=== PATIENT | female | born 1950 | race Caucasian/White ===

== ENCOUNTER 2020-04-07 17:18 | Inpatient (IN) | payer MEDICARE, OTHER ==
[~2020-04-07] VITALS: Ht 162.6 cm; Wt 54.0 kg
[2020-04-07 17:50] VITALS: BP 134/80
[2020-04-07] MEDS: AMOX TR/POT CLAV 875 MG/125 MG TABLET PO SCH (21:32)
[2020-04-07] MEDS: APIXABAN 5 MG TABLET PO SCH (21:32)
[2020-04-07] MEDS: ATORVASTATIN CALCIUM 40 MG TABLET PO SCH (21:32)
[2020-04-07] MEDS: DOCUSATE SODIUM 100 MG/10 ML LIQUID UDCUP PO SCH (21:32)
[2020-04-07 21:40] LABS: BASOPHILS % (AUTO) 1.3 % (0.0-2.0); EOSINOPHILS % (AUTO) 5.4 % (1.0-6.0); HEMATOCRIT 33.7 % (36-46); LYMPHOCYTES # (AUTO) 0.5 K/uL (1.0-4.8); LYMPHOCYTES % (AUTO) 7.1 % (22.0-44.0); MEAN CORPUSCULAR HEMOGLOBIN 28.8 pg (26.0-34.0); MEAN CORPUSCULAR HGB CONC 32.6 G/dL (31.0-37.0); MEAN CORPUSCULAR VOLUME 88 fL (80-100); MONOCYTES # (AUTO) 0.7 K/uL (0.1-1.0); MONOCYTES % (AUTO) 10.4 % (2.0-9.0); NEUTROPHILS # (AUTO) 4.9 K/uL (1.8-7.7); NEUTROPHILS % (AUTO) 75.8 % (40.0-70.0); PLATELET COUNT (AUTO) 214 K/uL (150-450); RED BLOOD CELL COUNT(AUTO) 3.83 MIL/uL (4.00-5.20); RED CELL DISTRIBUTION WIDTH 15.3 % (11.5-14.5)
[2020-04-07 22:13] LABS: ALANINE AMINOTRANSFERASE 13 U/L (12-78); ALBUMIN 2.9 g/dL (3.4-5.0); ALKALINE PHOSPHATASE 45 U/L (46-116); ANION GAP 5 mmol/L (8-16); ASPARTATE AMINOTRANSFERASE 11 U/L (15-37); BILIRUBIN,TOTAL 0.5 mg/dL (0.1-1.0); CALCIUM, TOTAL 9.4 mg/dL (8.8-10.5); CARBON DIOXIDE 31 mmol/L (22-29); CHLORIDE 105 mmol/L (98-107); CREATININE 0.62 mg/dL (0.60-1.30); GLOMERULAR FILTR. RATE CALC > 60 mL/min (>60); GLUCOSE,RANDOM 111 mg/dL (70-110); POTASSIUM 4.2 mmol/L (3.5-5.1); SODIUM SERUM 141 mmol/L (136-145); UREA NITROGEN, BLOOD 20 mg/dL (7-18)
[2020-04-08] VITALS: BP 142/78
[2020-04-08 07:10] VITALS: BP 121/76
[2020-04-08] MEDS: AMOX TR/POT CLAV 875 MG/125 MG TABLET PO SCH ×2 (08:47→20:34)
[2020-04-08] MEDS: APIXABAN 5 MG TABLET PO SCH ×2 (08:47→20:34)
[2020-04-08] MEDS: LISINOPRIL 20 MG TABLET PO SCH (08:47)
[2020-04-08] MEDS: AmLODIPine BESYLATE 10 MG TABLET PO SCH (08:47)
[2020-04-08] MEDS: DOCUSATE SODIUM 100 MG/10 ML LIQUID UDCUP PO SCH ×2 (09:41→20:34)
[2020-04-08 10:45] VITALS: BP 113/71
[2020-04-08 16:19] VITALS: BP 124/78
[2020-04-08] MEDS: ATORVASTATIN CALCIUM 40 MG TABLET PO SCH (20:34)
[2020-04-09 01:07] VITALS: BP 109/65
[2020-04-09] MEDS: DOCUSATE SODIUM 283 MG/5 ML MINI-ENEMA PR SCH (05:00)
[2020-04-09 07:10] VITALS: BP 116/60
[2020-04-09] MEDS: APIXABAN 5 MG TABLET PO SCH ×2 (08:11→20:54)
[2020-04-09] MEDS: LISINOPRIL 20 MG TABLET PO SCH (08:11)
[2020-04-09] MEDS: AMOX TR/POT CLAV 875 MG/125 MG TABLET PO SCH ×2 (08:11→20:54)
[2020-04-09] MEDS: AmLODIPine BESYLATE 10 MG TABLET PO SCH (08:11)
[2020-04-09] MEDS: DOCUSATE SODIUM 100 MG CAPSULE PO SCH ×2 (08:21→20:55)
[2020-04-09 09:30] VITALS: BP_SYST 115; BP_SYST 116; BP_DIAS 66; BP_DIAS 70
[2020-04-09] MEDS ORDERED: LISI-662 PO (09:50)
[2020-04-09] MEDS ORDERED: AMOX1TAB16 PO (09:50)
[2020-04-09 16:55] VITALS: BP 110/66
[2020-04-09] MEDS: ATORVASTATIN CALCIUM 40 MG TABLET PO SCH (20:54)
[2020-04-09 23:46] VITALS: BP 118/68
[2020-04-10] MEDS: DOCUSATE SODIUM 283 MG/5 ML MINI-ENEMA PR SCH (06:00)
[2020-04-10] MEDS: AmLODIPine BESYLATE 10 MG TABLET PO SCH (07:38)
[2020-04-10] MEDS: MULTIVITAMINS WITH MINERALS, THERAPEUTIC TABLET PO SCH (07:38)
[2020-04-10] MEDS: ASCORBIC ACID 500 MG TABLET PO SCH (07:38)
[2020-04-10] MEDS: AMOX TR/POT CLAV 875 MG/125 MG TABLET PO SCH ×2 (07:38→21:05)
[2020-04-10] MEDS: APIXABAN 5 MG TABLET PO SCH ×2 (07:38→21:05)
[2020-04-10] MEDS: LISINOPRIL 20 MG TABLET PO SCH (07:38)
[2020-04-10] MEDS: DOCUSATE SODIUM 100 MG CAPSULE PO SCH ×2 (07:40→21:05)
[2020-04-10 08:16] VITALS: BP 124/80
[2020-04-10 20:13] VITALS: BP 117/68
[2020-04-10] MEDS: ATORVASTATIN CALCIUM 40 MG TABLET PO SCH (21:05)
[2020-04-11 01:45] VITALS: BP 127/78
[2020-04-11] MEDS: DOCUSATE SODIUM 283 MG/5 ML MINI-ENEMA PR SCH (05:27)
[2020-04-11 07:10] VITALS: BP 110/60
[2020-04-11 08:40] VITALS: BP 122/76
[2020-04-11] MEDS: LISINOPRIL 20 MG TABLET PO SCH (08:52)
[2020-04-11] MEDS: MULTIVITAMINS WITH MINERALS, THERAPEUTIC TABLET PO SCH (08:52)
[2020-04-11] MEDS: DOCUSATE SODIUM 100 MG CAPSULE PO SCH ×2 (08:52→20:58)
[2020-04-11] MEDS: APIXABAN 5 MG TABLET PO SCH ×2 (08:52→20:58)
[2020-04-11] MEDS: ASCORBIC ACID 500 MG TABLET PO SCH (08:52)
[2020-04-11] MEDS: AMOX TR/POT CLAV 875 MG/125 MG TABLET PO SCH ×2 (08:52→20:58)
[2020-04-11] MEDS: AmLODIPine BESYLATE 10 MG TABLET PO SCH (08:52)
[2020-04-11 10:30] VITALS: BP 126/97
[2020-04-11 15:20] VITALS: BP 127/68
[2020-04-11] MEDS: ATORVASTATIN CALCIUM 40 MG TABLET PO SCH (20:58)
[2020-04-11] MEDS: ACETAMINOPHEN 325 MG TABLET PO PRN (21:30)
[2020-04-12] VITALS: BP 121/65
[2020-04-12] MEDS: DOCUSATE SODIUM 283 MG/5 ML MINI-ENEMA PR SCH (06:00)
[2020-04-12] MEDS: ACETAMINOPHEN 325 MG TABLET PO PRN ×3 (06:22→21:10)
[2020-04-12 07:10] VITALS: BP 130/76
[2020-04-12 07:28] LABS: BASOPHILS % (AUTO) 2.6 % (0.0-2.0); EOSINOPHILS % (AUTO) 7.4 % (1.0-6.0); HEMATOCRIT 34.7 % (36-46); HEMOGLOBIN 11.5 g/dL (12.0-16.0); LYMPHOCYTES # (AUTO) 0.4 K/uL (1.0-4.8); LYMPHOCYTES % (AUTO) 9.5 % (22.0-44.0); MEAN CORPUSCULAR HEMOGLOBIN 29.2 pg (26.0-34.0); MEAN CORPUSCULAR HGB CONC 33.2 G/dL (31.0-37.0); MEAN CORPUSCULAR VOLUME 88 fL (80-100); MONOCYTES # (AUTO) 0.5 K/uL (0.1-1.0); MONOCYTES % (AUTO) 11.3 % (2.0-9.0); NEUTROPHILS % (AUTO) 69.2 % (40.0-70.0); PLATELET COUNT (AUTO) 230 K/uL (150-450); RED BLOOD CELL COUNT(AUTO) 3.95 MIL/uL (4.00-5.20); RED CELL DISTRIBUTION WIDTH 15.1 % (11.5-14.5)
[2020-04-12] MEDS: MULTIVITAMINS WITH MINERALS, THERAPEUTIC TABLET PO SCH (07:48)
[2020-04-12] MEDS: LISINOPRIL 20 MG TABLET PO SCH (07:48)
[2020-04-12] MEDS: ASCORBIC ACID 500 MG TABLET PO SCH (07:48)
[2020-04-12] MEDS: DOCUSATE SODIUM 100 MG CAPSULE PO SCH ×2 (07:48→20:17)
[2020-04-12] MEDS: APIXABAN 5 MG TABLET PO SCH ×2 (07:48→20:17)
[2020-04-12] MEDS: AmLODIPine BESYLATE 10 MG TABLET PO SCH (07:48)
[2020-04-12] MEDS: AMOX TR/POT CLAV 875 MG/125 MG TABLET PO SCH ×2 (07:48→20:17)
[2020-04-12 07:53] LABS: ANION GAP 7 mmol/L (8-16); CALCIUM, TOTAL 9.5 mg/dL (8.8-10.5); CARBON DIOXIDE 31 mmol/L (22-29); CHLORIDE 105 mmol/L (98-107); CREATININE 0.55 mg/dL (0.60-1.30); GLOMERULAR FILTR. RATE CALC > 60 mL/min (>60); GLUCOSE,RANDOM 100 mg/dL (70-110); POTASSIUM 3.8 mmol/L (3.5-5.1); SODIUM SERUM 143 mmol/L (136-145); UREA NITROGEN, BLOOD 20 mg/dL (7-18)
[2020-04-12 10:00] VITALS: BP 118/76
[2020-04-12 12:47] VITALS: BP 134/91
[2020-04-12 15:20] VITALS: BP 122/68
[2020-04-12] MEDS: ATORVASTATIN CALCIUM 40 MG TABLET PO SCH (20:17)
[2020-04-12 23:50] VITALS: BP 126/66
[2020-04-13] MEDS: DOCUSATE SODIUM 283 MG/5 ML MINI-ENEMA PR SCH (06:16)
[2020-04-13] MEDS: MULTIVITAMINS WITH MINERALS, THERAPEUTIC TABLET PO SCH (07:57)
[2020-04-13] MEDS: APIXABAN 5 MG TABLET PO SCH ×2 (07:57→20:46)
[2020-04-13] MEDS: ASCORBIC ACID 500 MG TABLET PO SCH (07:57)
[2020-04-13] MEDS: LISINOPRIL 20 MG TABLET PO SCH (07:57)
[2020-04-13] MEDS: DOCUSATE SODIUM 100 MG CAPSULE PO SCH ×2 (07:57→20:52)
[2020-04-13] MEDS: AmLODIPine BESYLATE 10 MG TABLET PO SCH (07:57)
[2020-04-13] MEDS: AMOX TR/POT CLAV 875 MG/125 MG TABLET PO SCH ×2 (07:57→20:45)
[2020-04-13] MEDS: ACETAMINOPHEN 325 MG TABLET PO PRN ×2 (08:43→20:52)
[2020-04-13 14:23] VITALS: BP 139/85
[2020-04-13 16:20] VITALS: BP 128/61
[2020-04-13] MEDS: ATORVASTATIN CALCIUM 40 MG TABLET PO SCH (20:46)
[2020-04-13] MEDS: SENNA 187 MG TABLET PO SCH (20:52)
[2020-04-13 23:00] VITALS: BP 124/69
[2020-04-14] MEDS: DOCUSATE SODIUM 283 MG/5 ML MINI-ENEMA PR SCH (04:49)
[2020-04-14 07:11] VITALS: BP 104/62
[2020-04-14] MEDS: MULTIVITAMINS WITH MINERALS, THERAPEUTIC TABLET PO SCH (08:34)
[2020-04-14] MEDS: AMOX TR/POT CLAV 875 MG/125 MG TABLET PO SCH ×2 (08:34→20:17)
[2020-04-14] MEDS: APIXABAN 5 MG TABLET PO SCH ×2 (08:34→20:16)
[2020-04-14] MEDS: LISINOPRIL 20 MG TABLET PO SCH (08:34)
[2020-04-14] MEDS: AmLODIPine BESYLATE 10 MG TABLET PO SCH (08:34)
[2020-04-14] MEDS: DOCUSATE SODIUM 100 MG CAPSULE PO SCH ×2 (08:34→20:16)
[2020-04-14] MEDS: ASCORBIC ACID 500 MG TABLET PO SCH (08:34)
[2020-04-14] MEDS: ACETAMINOPHEN 325 MG TABLET PO PRN (08:41)
[2020-04-14 16:00] VITALS: BP 113/72
[2020-04-14] MEDS: SENNA 187 MG TABLET PO SCH (20:17)
[2020-04-14] MEDS: ATORVASTATIN CALCIUM 40 MG TABLET PO SCH (20:17)
[2020-04-15] MEDS: DOCUSATE SODIUM 283 MG/5 ML MINI-ENEMA PR SCH (04:30)
[2020-04-15 04:32] VITALS: BP 126/75
[2020-04-15 07:30] VITALS: BP 142/82
[2020-04-15] MEDS: AmLODIPine BESYLATE 10 MG TABLET PO SCH (08:22)
[2020-04-15] MEDS: AMOX TR/POT CLAV 875 MG/125 MG TABLET PO SCH ×2 (08:22→20:13)
[2020-04-15] MEDS: LISINOPRIL 20 MG TABLET PO SCH (08:22)
[2020-04-15] MEDS: MULTIVITAMINS WITH MINERALS, THERAPEUTIC TABLET PO SCH (08:22)
[2020-04-15] MEDS: APIXABAN 5 MG TABLET PO SCH ×2 (08:22→20:13)
[2020-04-15] MEDS: DOCUSATE SODIUM 100 MG CAPSULE PO SCH ×2 (08:22→20:13)
[2020-04-15] MEDS: ASCORBIC ACID 500 MG TABLET PO SCH (08:22)
[2020-04-15 16:11] VITALS: BP 117/65
[2020-04-15] MEDS: ATORVASTATIN CALCIUM 40 MG TABLET PO SCH (20:13)
[2020-04-15] MEDS: SENNA 187 MG TABLET PO SCH (20:13)
[2020-04-16] VITALS: BP 117/66
[2020-04-16] MEDS: DOCUSATE SODIUM 283 MG/5 ML MINI-ENEMA PR SCH (05:12)
[2020-04-16 07:45] VITALS: BP 114/64
[2020-04-16] MEDS: ASCORBIC ACID 500 MG TABLET PO SCH (08:31)
[2020-04-16] MEDS: DOCUSATE SODIUM 100 MG CAPSULE PO SCH ×2 (08:31→20:39)
[2020-04-16] MEDS: MULTIVITAMINS WITH MINERALS, THERAPEUTIC TABLET PO SCH (08:31)
[2020-04-16] MEDS: APIXABAN 5 MG TABLET PO SCH ×2 (08:32→20:39)
[2020-04-16] MEDS: AmLODIPine BESYLATE 10 MG TABLET PO SCH (08:32)
[2020-04-16] MEDS: AMOX TR/POT CLAV 875 MG/125 MG TABLET PO SCH ×2 (08:32→20:39)
[2020-04-16] MEDS: LISINOPRIL 20 MG TABLET PO SCH (08:32)
[2020-04-16 15:39] VITALS: BP 123/72
[2020-04-16] MEDS: ATORVASTATIN CALCIUM 40 MG TABLET PO SCH (20:39)
[2020-04-16] MEDS: SENNA 187 MG TABLET PO SCH (20:39)
[2020-04-17] VITALS: BP 123/64
[2020-04-17] MEDS: DOCUSATE SODIUM 283 MG/5 ML MINI-ENEMA PR SCH (05:17)
[2020-04-17 07:00] VITALS: BP 128/68
[2020-04-17] MEDS: AMOX TR/POT CLAV 875 MG/125 MG TABLET PO SCH ×2 (09:09→20:26)
[2020-04-17] MEDS: AmLODIPine BESYLATE 10 MG TABLET PO SCH (09:09)
[2020-04-17] MEDS: DOCUSATE SODIUM 100 MG CAPSULE PO SCH ×2 (09:09→20:26)
[2020-04-17] MEDS: APIXABAN 5 MG TABLET PO SCH ×2 (09:09→20:26)
[2020-04-17] MEDS: MULTIVITAMINS WITH MINERALS, THERAPEUTIC TABLET PO SCH (09:10)
[2020-04-17] MEDS: ASCORBIC ACID 500 MG TABLET PO SCH (09:10)
[2020-04-17] MEDS: LISINOPRIL 20 MG TABLET PO SCH (09:10)
[2020-04-17 15:02] VITALS: BP 111/61
[2020-04-17] MEDS: SENNA 187 MG TABLET PO SCH (20:25)
[2020-04-17] MEDS: ATORVASTATIN CALCIUM 40 MG TABLET PO SCH (20:26)
[2020-04-18 00:11] VITALS: BP 116/64
[2020-04-18] MEDS: DOCUSATE SODIUM 283 MG/5 ML MINI-ENEMA PR SCH (04:49)
[2020-04-18 07:00] VITALS: BP 127/72
[2020-04-18] MEDS: ASCORBIC ACID 500 MG TABLET PO SCH (08:15)
[2020-04-18] MEDS: LISINOPRIL 20 MG TABLET PO SCH (08:15)
[2020-04-18] MEDS: DOCUSATE SODIUM 100 MG CAPSULE PO SCH ×2 (08:15→21:24)
[2020-04-18] MEDS: MULTIVITAMINS WITH MINERALS, THERAPEUTIC TABLET PO SCH (08:15)
[2020-04-18] MEDS: AmLODIPine BESYLATE 10 MG TABLET PO SCH (08:15)
[2020-04-18] MEDS: AMOX TR/POT CLAV 875 MG/125 MG TABLET PO SCH ×2 (08:15→21:24)
[2020-04-18] MEDS: APIXABAN 5 MG TABLET PO SCH ×2 (08:15→21:25)
[2020-04-18] MEDS: ACETAMINOPHEN 325 MG TABLET PO PRN (09:19)
[2020-04-18 10:19] VITALS: BP 113/66
[2020-04-18 15:00] VITALS: BP 123/71
[2020-04-18 20:49] LABS: APPEARANCE,URINE CLOUDY (CLEAR); BILIRUBIN,URINE NEGATIVE (NEGATIVE); GLUCOSE, URINE (UA) NEGATIVE (NEGATIVE); KETONES,URINE NEGATIVE (NEGATIVE); LEUKOCYTE ESTERASE ,URINE TRACE (NEGATIVE); NITRATE,URINE NEGATIVE (NEGATIVE); OCCULT BLOOD,URINE NEGATIVE (NEGATIVE); PROTEIN,URINE NEGATIVE (NEGATIVE); UROBILINOGEN,URINE 0.2 mg/dL (<=1.0)
[2020-04-18 21:12] LABS: BACTERIA,URINE Moderate /HPF (None Seen); RBC,URINE None Seen /HPF (0-2); SQUAMOUS EPITHELIAL CELL,UR Few /LPF (None Seen)
[2020-04-18] MEDS: SENNA 187 MG TABLET PO SCH (21:24)
[2020-04-18] MEDS: ATORVASTATIN CALCIUM 40 MG TABLET PO SCH (21:25)
[2020-04-19 00:25] VITALS: BP 122/70
[2020-04-19] MEDS: DOCUSATE SODIUM 283 MG/5 ML MINI-ENEMA PR SCH (05:54)
[2020-04-19 07:39] VITALS: BP 133/88
[2020-04-19] MEDS: ASCORBIC ACID 500 MG TABLET PO SCH (08:18)
[2020-04-19] MEDS: LISINOPRIL 20 MG TABLET PO SCH (08:18)
[2020-04-19] MEDS: AmLODIPine BESYLATE 10 MG TABLET PO SCH (08:18)
[2020-04-19] MEDS: DOCUSATE SODIUM 100 MG CAPSULE PO SCH ×2 (08:18→21:00)
[2020-04-19] MEDS: APIXABAN 5 MG TABLET PO SCH ×2 (08:18→21:03)
[2020-04-19] MEDS: MULTIVITAMINS WITH MINERALS, THERAPEUTIC TABLET PO SCH (08:18)
[2020-04-19] MEDS: AMOX TR/POT CLAV 875 MG/125 MG TABLET PO SCH ×2 (08:19→21:02)
[2020-04-19 09:24] LABS: BASOPHILS % (AUTO) 1.4 % (0.0-2.0); EOSINOPHILS % (AUTO) 7.1 % (1.0-6.0); HEMATOCRIT 33.2 % (36-46); LYMPHOCYTES # (AUTO) 0.3 K/uL (1.0-4.8); LYMPHOCYTES % (AUTO) 8.3 % (22.0-44.0); MEAN CORPUSCULAR HEMOGLOBIN 29.3 pg (26.0-34.0); MEAN CORPUSCULAR HGB CONC 33.3 G/dL (31.0-37.0); MEAN CORPUSCULAR VOLUME 88 fL (80-100); MONOCYTES # (AUTO) 0.3 K/uL (0.1-1.0); MONOCYTES % (AUTO) 10.2 % (2.0-9.0); NEUTROPHILS # (AUTO) 2.5 K/uL (1.8-7.7); PLATELET COUNT (AUTO) 192 K/uL (150-450); RED BLOOD CELL COUNT(AUTO) 3.76 MIL/uL (4.00-5.20); RED CELL DISTRIBUTION WIDTH 14.6 % (11.5-14.5)
[2020-04-19] MEDS: ACETAMINOPHEN 325 MG TABLET PO PRN (09:52)
[2020-04-19 12:25] LABS: ALANINE AMINOTRANSFERASE 21 U/L (12-78); ALBUMIN 3.4 g/dL (3.4-5.0); ALKALINE PHOSPHATASE 73 U/L (46-116); ANION GAP 6 mmol/L (8-16); ASPARTATE AMINOTRANSFERASE 19 U/L (15-37); BILIRUBIN,TOTAL 0.5 mg/dL (0.1-1.0); CALCIUM, TOTAL 9.9 mg/dL (8.8-10.5); CARBON DIOXIDE 31 mmol/L (22-29); CHLORIDE 106 mmol/L (98-107); CREATININE 0.65 mg/dL (0.60-1.30); GLOMERULAR FILTR. RATE CALC > 60 mL/min (>60); GLUCOSE,RANDOM 121 mg/dL (70-110); POTASSIUM 4.3 mmol/L (3.5-5.1); SODIUM SERUM 143 mmol/L (136-145); UREA NITROGEN, BLOOD 25 mg/dL (7-18)
[2020-04-19 15:20] VITALS: BP 108/62
[2020-04-19] MEDS: ACETAMINOPHEN 325 MG TABLET PO SCH ×2 (15:21→21:00)
[2020-04-19] MEDS: SENNA 187 MG TABLET PO SCH (21:00)
[2020-04-19] MEDS: ATORVASTATIN CALCIUM 40 MG TABLET PO SCH (21:00)
[2020-04-20] VITALS: BP 106/68
[2020-04-20] MEDS: DOCUSATE SODIUM 283 MG/5 ML MINI-ENEMA PR SCH (06:22)
[2020-04-20 07:11] VITALS: BP 134/69
[2020-04-20] MEDS: DOCUSATE SODIUM 100 MG CAPSULE PO SCH (08:23)
[2020-04-20] MEDS: LISINOPRIL 20 MG TABLET PO SCH (08:23)
[2020-04-20] MEDS: MULTIVITAMINS WITH MINERALS, THERAPEUTIC TABLET PO SCH (08:23)
[2020-04-20] MEDS: AmLODIPine BESYLATE 10 MG TABLET PO SCH (08:23)
[2020-04-20] MEDS: ACETAMINOPHEN 325 MG TABLET PO SCH (08:24)
[2020-04-20] MEDS: ASCORBIC ACID 500 MG TABLET PO SCH (08:24)
[2020-04-20] MEDS: APIXABAN 5 MG TABLET PO SCH (08:43)
[2020-04-20] MEDS: AMOX TR/POT CLAV 875 MG/125 MG TABLET PO SCH (09:27)
[2020-04-20 13:44] VITALS: BP 122/69
== END 2020-04-20 14:30 | DRG 56 ==
LOC: 4E 17:46 → 2WR 04-13 10:06
PROVIDERS: ADMIT Physical Medicine & Rehabilitation; ATTEND Physical Medicine & Rehabilitation
DX: I69.354 Hemiplegia and hemiparesis following cerebral infarction affecting left non-dominant side (principal); I61.8 Other nontraumatic intracerebral hemorrhage; R13.10 Dysphagia, unspecified; R32 Unspecified urinary incontinence; Z80.42 Family history of malignant neoplasm of prostate; Z92.21 Personal history of antineoplastic chemotherapy
CPT/HCPCS: 72100; 83735; 87081; 87086; 92507; 92523; 92526; 97110; 97112; 97163; 97166; 97530; 97535; 99366